=== PATIENT | male | born 1985 | race Caucasian/White ===

== ENCOUNTER 2018-01-09 02:31 | Emergency (ER) | payer BC, OTHER ==
[2018-01-09] MEDS ORDERED: METOPROLOL TARTRATE 25 MG TABLET PO ONE (02:49)
[2018-01-09] MEDS ORDERED: METOPROLOL TARTRATE 25 MG TABLET ONE (02:54)
[2018-01-09 03:00] LABS: Hematocrit 41.8 % (42.0-52.0); Hemoglobin 14.9 gm/dL (13.5-18.0); Mean Cell Volume 87.6 fl (78-100); Mean Corpuscular Hemoglobin 31.2 pg (27-31); Mean Corpuscular Hgb Conc 35.6 g/dl (32-36); Mean Platelet Volume 9.1 fl (6.0-9.5); Neutrophil # 7.1 K/mm3 (1.3-6.0); Platelet Count 254 K/mm3 (150-450); Red Blood Count 4.77 M/mm3 (4.7-6.0); Red Cell Distribution Width 12.8 % (11.5-14.0); White Blood Count 9.8 K/mm3 (4.0-10.5)
[2018-01-09 03:09] LABS: Prothrombin Time (Patient) 10.7 Seconds (9.0-11.0)
[2018-01-09 03:12] LABS: INR 1.07 INR (0.90-1.10)
[2018-01-09 03:17] LABS: ALT 32 U/L (19-67); AST 13 U/L (0-48); Albumin * 4.3 gm/dl (3.4-5.0); Alkaline Phosphatase * 68 U/L (50-170); Anion Gap 14.2 mmol/L (6.8-13.8); BUN/Creatinine Ratio 15.1 (9.0-21.6); Bilirubin, Total 0.6 mg/dL (0.0-1.1); Blood Urea Nitrogen 14 mg/dL (6-23); Ca. Corrected For Albumin 8.1 mg/dL (8.4-10.2); Calcium * 8.7 mg/dL (7.9-10.9); Carbon Dioxide 27.9 mmol/L (24-32.6); Chloride 101 mmol/L (97-106); Glucose * 143 mg/dL (70-110); Potassium 3.1 mmol/L (3.4-4.6); Sodium 140 mmol/L (132-142); Total Protein 7.4 gm/dL (6.2-8.2)
[2018-01-09 03:18] LABS: Troponin I Less than 0.017 ng/ml (0.00-0.10)
[2018-01-09 04:16] LABS: Urine Bilirubin Negative (NEGATIVE); Urine Blood Negative /ul (NEGATIVE); Urine Ketone Negative (NEGATIVE); Urine Nitrite Negative (NEGATIVE); Urine Protein Negative (NEGATIVE); Urine Specific Gravity <=1.005 SP.GR. (1.005-1.030); Urine Urobilinogen Normal (NORMAL)
[2018-01-09 04:24] LABS: Cocaine Ur Negative (NEGATIVE); Urine Appearance Clear; Urine Bacteria None Seen; Urine Barbiturate Negative (NEGATIVE); Urine Benzodiazepines Negative (NEGATIVE); Urine Color Pale Yellow; Urine Opiates Negative (NEGATIVE); Urine PCP Negative (NEGATIVE); Urine RBC None Seen /hpf (0-5); Urine THC Negative (NEGATIVE); Urine WBC None Seen /hpf (0-5)
[2018-01-09 04:54] VITALS: BP 130/78
--- NOTE | 2018-01-09 04:56 | ERNOTE ---
Chest Pain/Cardiac HPI Date of Service: 01/09/18 Chief Complaint: Palpitations Time Seen by Provider: 01/09/18 02:48 Source: patient Exam Limitations: no limitations Immunizations: IMMUNIZATION HX Immunizations Up to Date Yes History of Influenza Vaccine No Hx Pneumococcal Vaccination No Allergies/Adverse Reactions: Allergies No Known Allergies Allergy (Unverified 11/22/14 17:40) Home Medications: HOME MEDICATIONS Metoprolol Succinate [Toprol Xl] 50 mg PO DAILY #30 tab 01/09/18 [Last Taken Unknown] Narrative: patient has been having palpitations for last 3-4 days, denies chest pain, no change in meds or condition Timing: intermittent Severity/Quality: mild, other - no pain , is just aware of beats Chest Pain Radiation: no radiation Activities at Onset: none Modifying Factors - Improves: Present: nothing Modifying Factors - Worsens: Present: nothing Nitro Today/Relief: no nitro taken today Aspirin Treatment Today: no aspirin today Associated Symptoms: Present: denies symptoms Prior Chest Pain/Cardiac Workup: Reports: no prior cardiac workup Review of Systems - Narrative Narrative: unremarkable - Review of Systems Constitutional: Present: See HPI EYE: Present: no symptoms reported ENT: Present: no symptoms reported Respiratory: Present: no symptoms reported Cardiology: Present: See HPI, palpitations Gastrointestinal/Abdominal: Present: no symptoms reported Genitourinary: Present: no symptoms reported Musculoskeletal: Present: no symptoms reported Skin: Present: no symptoms reported Neurological: Present: no symptoms reported Endocrine: Present: no symptoms reported Hematologic/Lymphatic: Present: no symptoms reported Psych: Present: no symptoms reported All Other Systems: All systems neg except as marked - Narrative Narrative: unremarkable - Patient's Past Medical History Patient History - Medical: Anxiety Patient History - Cardiac/Respiratory: No pertinent hx Patient History - Cancer: No Hx of Cancer Patient History - Surgical Procedures: Orthopedic Patient History - Other: None - Family History Family History:: no untoward family reactions to anesthesia, no familial bleeding tendencies, no family history of clotting disorders, no family history of premature - Social History Living Situations: spouse Abuse History: No History of abuse Psych History: Hx of Anxiety, Hx of Depression Smoking Status: Current every day smoker Have you smoked in the past 12 months: Yes Do you dip or chew tobacco: No Patient requests Smoking Cessation Consult: No Initiate information on Smoking Cessation: No Alcohol Use: occasionally Drug Use: none - Immunizations Immunizations Up to Date: Yes Hx Pneumococcal Vaccination: No History of Influenza Vaccine: No Physical Exam - Physical Exam General Appearance: Present: no apparent distress, anxious Head Exam: Present: normal inspection, no evidence of injury Eye Exam: Normal inspection: bilateral, PERRL: bilateral, EOMI: bilateral Ears, Nose, Throat: Present: normal ENT inspection Neck: Present: normal inspection, nontender Respiratory: Present: no respiratory distress, normal breath sounds, no accessory muscle use Cardiovascular/Chest: Present: extra beats Peripheral Pulses: N=norm/S=strong/W=weak/B=bound/A=absent: Carotid (R): Normal , Carotid (L): Normal, Radial (R): Normal, Radial (L): Normal, Femoral (R): Normal, Femoral (L): Normal, Dorsalis-pedis (R): Normal, Dorsalis-pedis (L): Normal Gastrointestinal/Abdominal: Present: normal bowel sounds, nontender, nondistended, soft, no organomegaly Back Exam: Present: normal inspection, normal range of motion, no CVA tenderness , no vertebral tenderness Extremity Exam: Present: normal inspection Neurological Exam: Present: alert, oriented, normal mood/affect, no motor/ sensory deficits DTR: N=norm/NB=norm/brisk/A=abs/DD=dull/dimin/HC=hyperactive: Bicep (R): Normal , Bicep (L): Normal, Tricep (R): Normal, Tricep (L): Normal, Knee (R): Normal, Knee (L): Normal, Ankle (R): Normal, Ankle (L): Normal Skin Exam: Present: normal color, warm/dry Lymphatic Exam: Present: no adenopathy ED Progress - Date and Time Seen: Date and Time: 01/09/18 04:52 condition improved, discussed labs and x-rays with patient to f/u with fp, return if symptoms worsen - Results and Orders Patient's Lab Results:: I have reviewed the patient's lab results. - Vital Signs Patient's Vital Signs:: I have reviewed the patient's vital signs. Vital Signs: Vital Signs 01/09/18 01/09/18 01/09/18 02:37 02:46 02:50 Temperature 37.3 C Pulse Rate 93 94 90 Respiratory 11 L 18 Rate Blood Pressure 140/81 131/77 O2 Sat by Pulse 99 99 Oximetry 01/09/18 01/09/18 01/09/18 02:55 03:11 03:26 Temperature Pulse Rate 80 79 79 Respiratory 17 12 Rate Blood Pressure 131/77 133/79 120/70 O2 Sat by Pulse 99 99 Oximetry 01/09/18 01/09/18 01/09/18 03:41 04:00 04:39 Temperature Pulse Rate 81 73 75 Respiratory 15 16 12 Rate Blood Pressure 122/73 121/72 O2 Sat by Pulse 99 98 96 Oximetry 01/09/18 04:40 Temperature Pulse Rate 85 Respiratory 13 Rate Blood Pressure 122/66 O2 Sat by Pulse 97 Oximetry - EKG EKG: NSR, other - with frequent pvcs EKG read: Interp. by me - X-Ray X-Ray #1 X-Ray: chest Interpretation: Interp. by me - no acute process - Progress/Reassessment Chief Complaint: Palpitations Progress:: Improved - Transfer of Care Expected Disposition: Discharge Plan - Plan Plan: too be discharged Departure Clinical Impression: Heart palpitations - Departure Disposition: Home Follow Up Needed Condition: Fair Instructions: Palpitations, [id number] Referrals: Cindi Pearce DO [Primary Care Provider] - Prescriptions: Metoprolol Succinate [Toprol Xl] 50 mg PO DAILY #30 tab
== END 2018-01-09 04:51 | disposition home or self-care (01) ==
LOC: ER 02:31
DX: R00.2 Palpitations (principal); F17.200 Nicotine dependence, unspecified, uncomplicated